=== PATIENT | female | born 2000 | race Caucasian/White ===

== ENCOUNTER → 2025-05-09 12:38 | Outpatient (CLI) | payer OTHER, SELFPAY ==
--- NOTE | 2025-05-09 12:42 | DI.US.S_ITS ---
PROCEDURE: US OB <= 14 WEEKS FETUS INDICATIONS: ENCOUNTER FOR SUPERVISION OUTSIDE/PRIOR DATING DATA: Last menstrual period (LMP): 02/14/2025. LMP-based estimated date of delivery (MARIAELENA): 12/03/2025. First dating scan (date and location): 04/11/2025. Estimated date of delivery (MARIAELENA) from first dating scan: 12/03/2025. The calculations are made using the ultrasound MARIAELENA of 12/03/2025. TECHNIQUE: Real-time scanning was performed of the fetus and maternal pelvic organs, with image documentation. Endovaginal scanning was also performed to better visualize the fetus and maternal ovaries. COMPARISON: [facility], US, US OB < 14 WEEKS + OB TRANSVAG, 04/11/2025, 22:35. FINDINGS: Intrauterine gestational sac is present. No pole or yolk sac is visualized. Mean gestational sac diameter of 2.7 centimeter. Maternal organs: Ovaries are unremarkable. IMPRESSION: Findings diagnostic of failure, with a mean sac diameter of 2.7 centimeters, and no pole visualized. Additionally, the pole seen on comparison ultrasound is no longer visualized. We strive to produce accurate, complete, and clear reports of imaging services. To assist us in improving patient care, this report was composed using standard report templates and voice recognition software. Therefore, it may contain abnormal punctuation, insertions and/or omissions. Occasional wrong-word or sound-alike substitutions may occur. Though we review the report and make efforts to correct it, we do recommend that the report be read carefully in proper context to recognize any text inaccuracies. Dictated by: Aravind Alberto M.D. on 05/09/2025 at 15:16 Approved by: Aravind Alberto M.D. on 05/09/2025 at 15:20
== END ==
PROVIDERS: PCP Nurse Practitioner Family; Referring Provider Family Medicine; Visit Provider Family Medicine
DX: O36.80X0 Pregnancy with inconclusive fetal viability, not applicable or unspecified (principal)
CPT/HCPCS: 76801; 76817

== ENCOUNTER → 2025-05-20 15:20 | Outpatient (CLI) | payer OTHER, SELFPAY ==
--- NOTE | 2025-05-20 15:21 | DI.US.S_ITS ---
PROCEDURE: US PELVIC COMPLETE INDICATIONS: miscarriage TECHNIQUE: Real-time scanning was performed of the pelvic organs, with image documentation. Additional endovaginal scanning was necessary due to incomplete visualization of the adnexal and endometrial structures by transabdominal scanning. COMPARISON: None. FINDINGS: Uterus: Uterus is anteverted and normal in size at 5.8 x 5.1 x 6.5 cm. The myometrium is homogeneous. The endometrium measures 5 mm combined thickness. No focal lesion seen. Ovaries: The right ovary measures 2.9 x 1.7 x 2.6 cm, with a calculated ovarian volume of 5.4 cc. The left ovary measures 2.9 x 1.5 x 3 cm, with a calculated ovarian volume of 6.7 cc. The ovaries have a normal sonographic appearance. Less than 12 follicles can be seen in each ovary. No adnexal masses are seen. Other: No pathologic free abdominal or pelvic fluid. IMPRESSION: Complete , with no signs of retained products of conception. We strive to produce accurate, complete, and clear reports of imaging services. To assist us in improving patient care, this report was composed using standard report templates and voice recognition software. Therefore, it may contain abnormal punctuation, insertions and/or omissions. Occasional wrong-word or sound-alike substitutions may occur. Though we review the report and make efforts to correct it, we do recommend that the report be read carefully in proper context to recognize any text inaccuracies. Dictated by: Nii Madsen M.D. on 05/22/2025 at 14:24 Approved by: Nii Madsen M.D. on 05/22/2025 at 14:26
== END ==
LOC: US 15:21
PROVIDERS: PCP Family Medicine; Referring Provider Family Medicine; Visit Provider Family Medicine
DX: O03.9 Complete or unspecified spontaneous abortion without complication (principal)
CPT/HCPCS: 76830; 76856